=== PATIENT | female | born 2000 | race Caucasian/White ===

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

== ENCOUNTER 2021-11-30 09:42 | Emergency (ER) | payer MEDICAID ==
[~2021-11-30] VITALS: Ht 160 cm; Wt 75.0 kg
[2021-11-30] MEDS ORDERED: KETOROLAC 15MG/ML VIAL IV ONE (10:45)
[2021-11-30] MEDS ORDERED: METOCLOPRAMIDE HCL 10MG/2ML VIAL IV ONE (10:45)
[2021-11-30] MEDS ORDERED: SODIUM CHLORIDE 0.9% 1,000 ML IV ONE (10:45)
[2021-11-30 10:54] VITALS: BP 125/84
== END 2021-11-30 12:21 | disposition home or self-care (01) ==
LOC: ER 09:42
DX: R51.9 Headache, unspecified (principal)
CPT/HCPCS: 70450; 81025; 96361; 96374; 96375; 99284; J1885; J2765; J7030

== ENCOUNTER 2022-01-25 10:42 | Emergency (ER) | payer BC, MEDICAID ==
[~2022-01-25] VITALS: Ht 147.3 cm; Wt 68.0 kg
[2022-01-25] MEDS ORDERED: IBUPROFEN 600MG TABLET PO ONE (12:45)
[2022-01-25] MEDS ORDERED: TETANUS, DIPHTHERIA, PERTUSSIS VAC/PF 0.5ML (>10YR OLD) IM ONE (12:45)
[2022-01-25 13:09] VITALS: BP 114/84
== END 2022-01-25 14:49 | disposition home or self-care (01) ==
LOC: ER 11:06
DX: S61.211A Laceration without foreign body of left index finger without damage to nail, initial encounter (principal); W45.8XXA Other foreign body or object entering through skin, initial encounter; Y93.89 Activity, other specified; Y92.89 Other specified places as the place of occurrence of the external cause; Y99.8 Other external cause status
CPT/HCPCS: 90715; 99283